=== PATIENT | female | born 1985 | race African-American/Black ===

== ENCOUNTER → 2016-10-22 | Outpatient (CLI) | payer BC | END | disposition home or self-care (01) | LOC: PCVCIMAG 15:37 | PROVIDERS: ATTEND Internal Medicine | DX: I45.81 Long QT syndrome (principal); R00.2 Palpitations; R94.31 Abnormal electrocardiogram [ECG] [EKG]; E78.5 Hyperlipidemia, unspecified | CPT/HCPCS: 93306 ==